=== PATIENT | female | born 1985 | race Caucasian/White ===

== ENCOUNTER 2023-04-04 11:25 | Emergency (ER) | payer OTHER, SELFPAY ==
--- NOTE | 2023-04-04 11:30 | ED.EAR ---
HPI - Ear Problem General Chief complaint: Ear Stated complaint: Ears Irritation Time Seen by Provider: 04/04/23 11:27 Source: patient Mode of arrival: ambulatory Limitations: no limitations History of Present Illness HPI Narrative: Edna is a 38-year-old female patient presenting to the clinic today with complaints of left ear discomfort/decreased hearing off and on x2 months. She reports no known fever or chills. Related Data Allergies Allergy/AdvReac Type Severity Reaction Status Date / Time No Known Allergies Allergy Verified 04/04/23 11:27 Review of Systems Review of Systems: Pertinent positives per HPI. Patient denies any fever, chills, rash, headache, visual changes, dizziness, cough, shortness of breath, chest pain, palpitations, nausea, vomiting, diarrhea, constipation, abdominal pain, or any urinary issues. PMFSH Comments At the time of my signature, I reviewed and agree with the nursing past medical, surgical, social, and family history. There is no relevant family history pertinent to the patient complaint. Exam Narrative: General: Well-developed, well nourished, in no apparent distress Head: Normocephalic, atraumatic Eyes: Pupils equally round and reactive to light bilaterally, EOM intact, sclera and conjunctive clear, no discharge, lids normal Ears: Right tMs intact and clear, left TM intact, mild bulging, fluid noted behind the TM common tenderness upon palpation over the eustachian tube, right ear canal clear, left ear canal ceruminous, ear irrigation was performed, no drainage, grossly hearing normal. Nose: Nares patent, no discharge, no inflammation, no sinus tenderness. Mouth: Oral pharynx without lesions or masses, good dentition, MMM. Neck: Supple, trachea midline, no enlargement of anterior or posterior cervical nodes, no thyroid masses or goiter palpable. Cardio: Regular rate and rhythm, s1 and s2 normal, no murmur appreciated. Resp: Clear to auscultation bilaterally, no rhonchi, rales, wheezing or rubs Course Course Emergency Course: Portions of this record may have been created with voice recognition software. Level of Care: Express Care Visit Vital Signs Vital signs: Vital signs reviewed Procedures Ear Wax Removal Left Ear: Ear Wax Removal Date: 04/04/23 Results: Re-examined: some cerumen remains TM Examination: other (TM bulging with fluid noted behind the TM) Ear Canal Exam: atraumatic Patient Tolerated Procedure: well and no complications Complications: no problems Technique: ear canal irrigated Additional Comments: Verbal consent obtained for ear irrigation. Risk and benefits explained and patient voiced understanding. Ear irrigation performed using an elephant ear and spray water bottle. Mixture of 1/2 peroxide 1/2 water used to irrigate ear canal. Cerumen impaction cleared and TM visualized without redness. Grossly hearing normal. Patient tolerated procedure well Medical Decision Making MDM Narrative Medical decision making narrative: At the time of visit patient is resting comfortably on the exam table. Patient appears to be nontoxic. Plan: Ear irrigation was performed in the left ear canal and some cerumen remains however I am able to visualize the whole TM. I suspect patient has serous otitis/eustachian tube dysfunction with a cerumen impaction. Prescription for prednisone was sent to the pharmacy. Supportive measures were discussed with the patient and they voiced understanding discharge instructions and agrees to treatment plan. Return precautions reviewed Differential Diagnosis Differential Diagnosis: Otitis media, otitis externa, eustachian tube dysfunction, upper respiratory infection, cerumen impaction, serous otitis Discharge Plan Discharge Clinical Impression: Acute dysfunction of left eustachian tube Acute serous otitis media Qualifiers: Laterality: left Recurrence: non-recurrent Qual
[2023-04-04 11:54] VITALS: BP 102/62; PULSE 68; RESP 16; TEMP 36.8; O2SAT 98
== END 2023-04-04 12:17 | disposition home or self-care (01) ==
PROVIDERS: Emergency Provider Nurse Practitioner Family
DX: H69.82 Other specified disorders of Eustachian tube, left ear (principal); H65.02 Acute serous otitis media, left ear; H61.22 Impacted cerumen, left ear
CPT/HCPCS: 69209; 99213; G0463